=== PATIENT | female | born 2000 | race Caucasian/White ===

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

== ENCOUNTER 2020-11-30 14:18 | Emergency (ER) | payer BC ==
[~2020-11-30] VITALS: Ht 175.3 cm; Wt 68.2 kg
[~2020-11-30 14:18] MED LIST: YASMIN 3 MG-0.01 TAB PO
[2020-11-30 14:22] VITALS: BP 123/81; TEMP 98.2
[2020-11-30] MEDS ORDERED: CRUTCHES MC (15:34)
[2020-11-30 15:48] VITALS: PULSE 64
== END 2020-11-30 15:47 | disposition home or self-care (01) ==
LOC: COL.ER 14:18
DX: M25.561 Pain in right knee (principal); X50.1XXA Overexertion from prolonged static or awkward postures, initial encounter